=== PATIENT | female | born 1970 | race Caucasian/White ===

== ENCOUNTER 2017-10-11 15:02 | Emergency (ER) | payer MEDICARE, MEDICAID ==
[2017-10-11 15:08] VITALS: BP 136/87
--- NOTE | 2017-10-11 15:40 | ED Physician Documentation ---
PD HPI UPPER EXT INJURY - Stated complaint Stated Complaint: R HAND INJ - Chief complaint Chief Complaint: Ext Problem - History obtained from History obtained from: Patient - History of Present Illness Location: Right, Hand Type of injury: Blunt / blow Where injury occurred: A house / apartment Timing - onset: How many days ago (2) Worsened by: Moving, Palpating Associated symptoms: Swelling, Discolored Similar symptoms before: Has not had sx before - Additonal information Additional information: The patient is a 47-year-old female who presents with pain in her right hand. She punched a wall 2 days ago. She is right-hand dominant. Tetanus status is up-to-date. In addition she complains of pain in her left posterior chest, starting after she threw a heavy object with her left arm 2 days ago. She denies cough or shortness of breath. The pain is worse with movement of her left upper extremity. Review of Systems Constitutional: denies: Fever Nose: denies: Congestion Throat: denies: Sore throat Cardiac: reports: Chest pain / pressure. denies: Palpitations Respiratory: denies: Dyspnea, Cough GI: denies: Abdominal Pain, Nausea, Vomiting : denies: Dysuria Skin: denies: Rash Musculoskeletal: reports: Extremity pain (Right hand). 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, Hysterectomy HEENT: Detached retina repair, Tonsil/Adenoidectomy - Present Medications Home Medications: Ambulatory Orders Medication Instructions Recorded Confirmed HYDROcod/ACETAM 5/325 [Vicodin 1 ea PO Q6H PRN #15 tablet 10/11/17 5/325] - Allergies Allergies/Adverse Reactions: Allergies Allergy/AdvReac Type Severity Reaction Status Date / Time No Known Drug Allergies Allergy Verified 10/11/17 15:07 - Social History Does the pt smoke?: Yes Smoking Status: Current every day smoker Does the pt drink ETOH?: Yes Does the pt have substance abuse?: Yes Substance Use and Type: Marijuana PD ED PE NORMAL - Vitals Vital signs reviewed: Yes (Borderline hypertension.) - General General: Alert and oriented X 3, Well developed/nourished - HEENT HEENT: Atraumatic, Pharynx benign - Neck Neck: No bony TTP, No JVD - Cardiac Cardiac: RRR, No murmur - Respiratory Respiratory: No respiratory distress, Clear bilaterally, Other (Mild tenderness to palpation over the left latissimus dorsi musculature.) - Abdomen Abdomen: Soft, Non tender - Back Back: No CVA TTP, No spinal TTP - Derm Derm: No rash - Extremities Extremities: No edema, No calf tenderness / cord, Other (There is swelling of the right hand over the lateral aspect, with an area of ecchymosis at the base of the third and fourth fingers extending to the palmar aspect of the hand. There is a small superficial abrasion at the base of the fourth finger over the MCP joint. She has full flexion and extension of the DIP, PIP, and MCP joints. Distal neurovascular is intact.) - Neuro Neuro: Alert and oriented X 3, No motor deficit, No sensory deficit Results - Vitals Vitals: Oxygen O2 Source Room air - Rads (name of study) Right hand Radiology: Prelim report reviewed, EMP read contemporaneously, See rad report ( Proximal shaft fracture of the fifth metacarpal with mild displacement and foreshortening.) Procedures - Splint (location) right hand Splint applied by: Physician Type of splint: Fiberglass, Ulnar gutter Other: Patient tolerated well, No complications, Neurovascular intact, Sling provided PD MEDICAL DECISION MAKING - ED course Complexity details: reviewed results, re-evaluated patient, considered differential, d/w patient, d/w family ED course: The patient's presentation is significant for a closed fracture at the proximal shaft of the right fifth metacarpal. Treatment in the emergency department included application of an ulnar gutter splint, applied by myself. Ibuprofen 800 mg was administered orally, and an arm sling was applied. I discussed with her and her the expected course of injury, orthopedic follow-up, as well as potentially worrisome signs or symptoms that should prompt reevaluation in the emergency department. She is discharged with prescription for Vicodin, 15 tablets. Departure - Departure Disposition: 01 Home, Self Care Clinical Impression: Closed fracture of 5th metacarpal Qualifiers: Encounter type: initial encounter Metacarpal location: shaft Fracture alignment : displaced Laterality: right Qualified Code(s): S62.326A - Displaced fracture of shaft of fifth metacarpal bone, right hand, initial encounter for closed fracture Condition: Stable Instructions: ED Fx Hand Closed Follow-Up: [facility] [Provider Group] Prescriptions: HYDROcod/ACETAM 5/325 [Vicodin 5/325] 1 ea PO Q6H PRN #15 tablet PRN Reason: Pain Comments: Keep your right arm elevated as much the time as possible. Apply ice pack intermittently for the next 3 days. Keep the splint dry. You can use Naprosyn as prescribed if needed for pain. Follow up with orthopedics within 1 week. Call to schedule appointment. Return to the emergency department if you develop markedly increasing pain, or otherwise worsening symptoms. Discharge Date/Time: 10/11/17 16:35
--- NOTE | 2017-10-11 15:59 | XRAY Report ---
EXAM: RIGHT HAND RADIOGRAPHY EXAM DATE: 10/11/2017 03:41 PM. CLINICAL HISTORY: Pain since injury 2 days ago. COMPARISON: None. TECHNIQUE: 3 views. FINDINGS: Bones: Displaced and impacted oblique proximal shaft fracture of the fifth metacarpal with shortening . No other traumatic or destructive bony abnormalities. Joints: Normal. No subluxations. Soft Tissues: Associated soft tissue swelling. IMPRESSION: Proximal shaft fracture of the fifth metacarpal with mild displacement and foreshortening . [facility] Referring Provider Line: [phone] SITE ID: [id number]
--- NOTE | 2017-10-11 15:59 | XRAY Preliminary Report ---
Exam: XR HAND 3 VIEW RT IMPRESSION: Proximal shaft fracture of the fifth metacarpal with mild displacement and foreshortening . [facility] SITE ID: [id number]
[2017-10-11] MEDS ORDERED: IBUPROFEN 800 MG TABLET PO STA (16:25)
== END 2017-10-11 16:35 | disposition home or self-care (01) ==
LOC: ED 15:02
DX: S62.326A Displaced fracture of shaft of fifth metacarpal bone, right hand, initial encounter for closed fracture (principal); W22.09XA Striking against other stationary object, initial encounter; Y93.89 Activity, other specified; Y92.039 Unspecified place in apartment as the place of occurrence of the external cause; F17.200 Nicotine dependence, unspecified, uncomplicated
CPT/HCPCS: 29125; 73130; 99283; A9270

== ENCOUNTER 2017-11-02 07:24 | Outpatient (CLI) | payer MEDICARE, MEDICAID ==
[2017-11-02 09:28] LABS: ALBUMIN 3.8 g/dL (3.2-5.5); ALBUMIN/GLOBULIN RATIO 1.2 (1.0-2.2); BILIRUBIN,TOTAL 0.6 mg/dL (0.2-1.0); CALCIUM 9.2 mg/dL (8.5-10.3); CREATININE 0.9 mg/dL (0.4-1.0); TOTAL PROTEIN 7.1 g/dL (6.7-8.2)
--- NOTE | 2017-11-03 17:06 | Mammography Report ---
DATE OF SERVICE: 11/02/2017 DIGITAL SCREENING MAMMOGRAM: 11/02/2017 CLINICAL INDICATION: A 47-year-old for baseline. TECHNIQUE: Routine CC and MLO projections were obtained of the breasts. The breasts demonstrate fatty replacement bilaterally. Coarse, typically benign calcifications are present. No suspicious masses, clustered microcalcifications, or regions of architectural distortion are identified. IMPRESSION: Benign findings. RECOMMENDATIONS: Routine annual screening unless otherwise clinically indicated. BIRADS category 2 benign findings. STANDARD QUALIFYING STATEMENTS 1. This examination was reviewed with the aid of Computed-Aided Detection (CAD). 2. A negative or benign imaging report should not delay biopsy if clinically suspicious findings are present. Consider surgical consultation if warranted. More than 5% of cancers are not identified by imaging. 3. Dense breasts may obscure an underlying neoplasm. TD: 11/03/2017 18:05
== END 2017-11-02 07:25 | disposition home or self-care (01) ==
LOC: DI 07:24
PROVIDERS: ATTEND Nurse Practitioner Gerontology
DX: Z12.31 Encounter for screening mammogram for malignant neoplasm of breast (principal); R74.8 Abnormal levels of other serum enzymes
CPT/HCPCS: 36415; 77067; 80053

== ENCOUNTER 2018-01-18 09:59 | Emergency (ER) | payer MEDICARE, MEDICAID ==
[2018-01-18 10:24] LABS: BASOPHILS % (AUTO) 0.7 %; BILIRUBIN,URINE NEGATIVE (NEGATIVE); EOSINOPHILS # (AUTO) 0.1 10^3/uL (0.0-0.7); EOSINOPHILS % (AUTO) 1.1 %; GLUCOSE, URINE (UA) NEGATIVE (NEGATIVE); HGB - HEMOGLOBIN 16.5 g/dL (12.0-16.0); KETONES,URINE (UA) NEGATIVE (NEGATIVE); LEUKOCYTE ESTERASE, URINE SMALL (NEGATIVE); LYMPHOCYTES # (AUTO) 2.4 10^3/uL (1.5-3.5); LYMPHOCYTES % (AUTO) 34.1 %; MEAN PLATELET VOLUME 7.5 fL (7.9-10.8); MONOCYTES # (AUTO) 0.4 10^3/uL (0.0-1.0); MONOCYTES % (AUTO) 6.3 %; NEUTROPHILS # (AUTO) 4.1 10^3/uL (1.5-6.6); NEUTROPHILS % (AUTO) 57.8 %; NITRITE,URINE NEGATIVE (NEGATIVE); OCCULT BLOOD,URINE MODERATE (NEGATIVE); PH,URINE 5.5 PH (5.0-7.5); PLT - PLATELET COUNT 188 10^3/uL (130-450); PROTEIN,URINE NEGATIVE (NEGATIVE); RED CELL DISTRIBUTION WIDTH 12.5 % (12.0-15.0); UROBILINOGEN,URINE 0.2 (NORMAL) E.U./dL (NORMAL); WHITE BLOOD COUNT 7.1 x10^3/uL (4.8-10.8)
[2018-01-18 10:27] LABS: CLARITY,URINE CLEAR (CLEAR)
[2018-01-18 10:32] LABS: BACTERIA,URINE Few /HPF (None Seen); SQUAMOUS EPITHELIAL CELL,UR RARE Squamous (<= Few); STARCH,URINE PRESENT
[2018-01-18] MEDS ORDERED: ACETAMINOPHEN 1,000 MG/100 ML 100 ML IV STA (10:34)
[2018-01-18] MEDS ORDERED: ONDANSETRON 4 MG/2 ML VIAL IVP STA (10:34)
[2018-01-18] MEDS ORDERED: SODIUM CHLORIDE 0.9% 1,000 ML IV ONE (10:34)
--- NOTE | 2018-01-18 10:38 | ED Physician Documentation ---
PD HPI ABD PAIN - Stated complaint Stated Complaint: SIDE PX - Chief complaint Chief Complaint: Abd Pain - History obtained from History obtained from: Patient - History of Present Illness Timing - onset: How many months ago (2) Timing - details: Waxing and waning Quality: Pain Location: Other (right-sided.) Associated symptoms: Nausea, Vomiting, Diarrhea Similar symptoms before: No diagnosis (Diarrhea since 2016, and abd.pain for past two months.) - Additional information Additional information: The patient is a 47-year-old female who presents with right-sided abdominal pain that she has had intermittently for the past 2 months but has become worse this morning. She reports nausea with vomiting 2 days ago, but not since then. She has been using promethazine for nausea. She also reports watery diarrhea which she has had for the past 5 or 6 months. She reports 6 episodes of watery diarrhea in the last 24 hours despite taking Imodium. She reports mild dysuria. She denies fever or shortness of breath,. There is nothing in particular that seems to make the pain better or worse. Surgical history: Status post cholecystectomy in 2008, status post periumbilical hernia repair with mesh in 2009. She underwent colonoscopy about 4 years ago, and reports it revealed 3 polyps. Review of Systems Constitutional: reports: Fatigue. denies: Fever Nose: denies: Congestion Throat: denies: Sore throat Cardiac: denies: Chest pain / pressure Respiratory: reports: Cough (chronic smoker's cough.). denies: Dyspnea GI: reports: Abdominal Pain, Nausea, Vomiting, Diarrhea : reports: Dysuria (mild) Skin: denies: Rash Musculoskeletal: denies: Back pain, Extremity pain Neurologic: denies: Focal weakness, Numbness, Headache PD PAST MEDICAL HISTORY - Past Medical History Past Medical History: Yes Endocrine/Autoimmune: None HEENT: Other Musculoskeletal: Fibromyalgia, Osteoporosis Other Past Medical History: spinal cord tumor. 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, Hysterectomy HEENT: Detached retina repair, Tonsil/Adenoidectomy - Present Medications Home Medications: Ambulatory Orders Medication Instructions Recorded Confirmed Loperamide HCl [Imodium A-D] 2 mg PO 01/18/18 Nitrofurantoin [Macrobid] 100 mg PO BID #10 capsule 01/18/18 - Allergies Allergies/Adverse Reactions: Allergies Allergy/AdvReac Type Severity Reaction Status Date / Time adhesive Allergy Rash Verified 01/18/18 10:08 - Social History Does the pt smoke?: Yes Smoking Status: Current every day smoker Does the pt drink ETOH?: Yes Does the pt have substance abuse?: Yes - Immunizations Immunizations are current?: Yes PD ED PE NORMAL - Vitals Vital signs reviewed: Yes (borderline systolic hypertension.) - General General: Alert and oriented X 3, Well developed/nourished, Other (ill-kempt.) - HEENT HEENT: Atraumatic, EOMI, Moist mucous membranes, Pharynx benign - Neck Neck: Supple, no meningeal sign, No adenopathy, No JVD - Cardiac Cardiac: RRR, No murmur - Respiratory Respiratory: No respiratory distress, Clear bilaterally - Abdomen Abdomen: Soft, No organomegaly, Other (Tenderness to palpation in the right mid upper abdomen, without rebound tenderness or guarding.) - Back Back: No CVA TTP - Derm Derm: No rash - Extremities Extremities: No edema, No calf tenderness / cord - Neuro Neuro: Alert and oriented X 3, No motor deficit, Normal speech Results - Vitals Vitals: Oxygen O2 Source Room air - Labs Labs: Microbiology 01/18/18 10:20 Urine Culture - Preliminary Urine,Clean Catch 10-50,000 COLONIES/ML Polymicrobial growth including potential pathogens. This is suggestive of skin or other contamination. Laboratory Tests 01/18/18 01/18/18 01/18/18 10:20 10:20 10:20 WBC 7.1 RBC 5.00 Hgb 16.5 H Hct 48.5 H MCV 97.0 MCH 33.0 H MCHC 34.0 RDW 12.5 Plt Count 188 MPV 7.5 L Neut # 4.1 Lymph # 2.4 [place] # 0.4 Eos # 0.1 Baso # 0.0 Absolute Nucleated RBC 0.01 Nucleated RBC % 0.1 Sodium 139 Potassium 3.5 Chloride 101 Carbon Dioxide 28 Anion Gap 10.0 BUN 15 Creatinine 0.9 Estimated GFR (MDRD) 68 L Glucose 110 H Calcium 9.5 Total Bilirubin 0.9 AST 24 ALT 19 Alkaline Phosphatase 86 Total Protein 7.6 Albumin 4.1 Globulin 3.5 Albumin/Globulin Ratio 1.2 Lipase 12 L Urine Color DARK YELLOW Urine Clarity CLEAR Urine pH 5.5 Ur Specific [place] >=1.030 H Urine Protein NEGATIVE Urine Glucose (UA) NEGATIVE Urine Ketones NEGATIVE Urine Occult Blood MODERATE H Urine Nitrite NEGATIVE Urine Bilirubin NEGATIVE Urine Urobilinogen 0.2 (NORMAL) Ur Leukocyte Esterase SMALL H Urine RBC 6-10 H Urine WBC 6-10 H Ur Squamous Epith Cells RARE Squamous Urine Bacteria Few Urine Starch PRESENT Ur Microscopic Review INDICATED Urine Culture Comments INDICATED - Rads (name of study) CT abd/pelvis w/IV contrast Radiology: Prelim report reviewed, EMP read contemporaneously, See rad report (1 ) Prior cholecystectomy with mild to moderate intrahepatic and extrahepatic bile duct dilatation, not unusual post cholecystectomy. No choledocholithiasis. 2) Question of small area of fatty herniation in the area of prior abdominal wall umbilical/periumbilical hernia repair. Abdominal wall ultrasound may be considered on an elective basis for further assessment. No bowel involvement. 3)Prior hysterectomy. 4) Remainder of the abdomen and pelvis unremarkable without demonstrated cause for the patient's symptoms.) PD MEDICAL DECISION MAKING - ED course Complexity details: reviewed old records, reviewed results, re-evaluated patient , considered differential, d/w patient ED course: The patient's abdominal pain seems most likely related to her previous periumbilical hernia repair with a small herniation noted on the CT scan at the edge of the mesh. There is no bowel involvement, and this does not represent an emergent surgical condition. Her laboratory analysis reveals cystitis, with pyuria and bacteriuria on urinalysis. CBC and chemistry panel are unremarkable. It is unclear to me the etiology of the patient's reportedly chronic diarrhea. She had no diarrhea while in the emergency department. There is no evidence to suggest an infectious etiology. Treatment in the emergency department included administration of normal saline 1 L IV, Zofran 4 mg IV, and acetaminophen 1 g IV Macrobid 1 tablet was administered orally. She is being discharged with prescription for Macrobid. I discussed with her the results of her workup, antibiotic treatment and outpatient follow-up, as well as potentially worrisome signs or symptoms that should prompt reevaluation in the emergency department. Departure - Departure Disposition: 01 Home, Self Care Clinical Impression: Abdominal pain Qualifiers: Abdominal location: generalized Qualified Code(s): R10.84 - Generalized abdominal pain Urinary tract infection Qualifiers: Urinary tract infection type: acute cystitis Hematuria presence: without hematuria Qualified Code(s): N30.00 - Acute cystitis without hematuria Condition: Stable Instructions: ED UTI Cystitis Female Follow-Up: Nabeel Le PA-C [Credentialed Staff Provider] - Prescriptions: Nitrofurantoin [Macrobid] 100 mg PO BID #10 capsule Comments: Drink plenty of fluids, including cranberry juice. Take Macrobid twice daily as prescribed. You can use Phenergan as prescribed if needed for nausea. Follow up with your primary physician within 1-2 weeks. Call to schedule an appointment. Return to the emergency department if you develop increasing abdominal pain, persistent vomiting, dehydration, or otherwise worsening symptoms. Discharge Date/Time: 01/18/18 14:07
[2018-01-18 10:40] LABS: ALBUMIN 4.1 g/dL (3.2-5.5); ALBUMIN/GLOBULIN RATIO 1.2 (1.0-2.2); BILIRUBIN,TOTAL 0.9 mg/dL (0.2-1.0); CALCIUM 9.5 mg/dL (8.5-10.3); CREATININE 0.9 mg/dL (0.4-1.0); TOTAL PROTEIN 7.6 g/dL (6.7-8.2)
[2018-01-18] MEDS ORDERED: IOPAMIDOL-300 100 ML VIAL ONE (10:58)
[2018-01-18] MEDS ORDERED: IOPAMIDOL-300 100 ML VIAL IVP ONE (11:15)
--- NOTE | 2018-01-18 11:38 | CT Preliminary Report ---
Exam: CT ABDOMEN/PELVIS W/ IMPRESSION: Prior cholecystectomy with mild to moderate intrahepatic and extra hepatic bile duct dila tation, not unusual post cholecystectomy. No choledocholithiasis. Question of small area of fatty herniation in the area of prior abdominal wall umbilical/periumbilica l hernia repair. Abdominal wall ultrasound should be considered on an elective basis for further asse ssment. No bowel involvement. Prior hysterectomy. Remainder of the abdomen and pelvis unremarkable without demonstrated cause for the patient's symptom s.. [facility] SITE ID: [id number]
--- NOTE | 2018-01-18 11:55 | CT Report ---
EXAM: CT ABDOMEN AND PELVIS WITH CONTRAST EXAM DATE: 01/18/2018 11:17 AM. CLINICAL HISTORY: Right mid-abdominal pain, with vomiting and diarrhea for several months in a 47-yea r-old female. History of hysterectomy, cholecystectomy and prior hernia repair. COMPARISONS: None. TECHNIQUE: Emergent axial helical CT imaging was performed through the abdomen and pelvis. IV contras t: Isovue 300, 100 mL. Enteric contrast: None. Reconstructions: Coronal and sagittal. In accordance with CT protocol optimization, one or more of the following dose reduction techniques w ere utilized for this exam: automated exposure control, adjustment of mA and/or KV based on patient s ize, or use of iterative reconstructive technique. FINDINGS: Lung Bases: Unremarkable. Liver: Normal size and contour. No mass or cyst. Gallbladder/Bile Ducts: Gallbladder surgically absent. Mild intrahepatic and extra hepatic bile duct dilatation. No choledocholithiasis noted. Spleen: Upper normal size at 12.1 cm in length. Otherwise unremarkable. No mass or cyst. Pancreas: Normal. Adrenal Glands: Normal. Kidneys: Normal. No masses or hydronephrosis. Peritoneal Cavity/Bowel: Normal. No free fluid, free air or adenopathy. No masses or acute inflammato ry process. The appendix and terminal ileum are well visualized and normal. Pelvic Organs: Urinary bladder decompressed and grossly unremarkable. Uterus surgically absent. No ad nexal mass, cyst or free fluid. No evident lymphadenopathy. Vasculature: No aneurysms or other significant abnormality. Bones: Unremarkable for age. No acute process or metastatic disease. Other: Postsurgical changes consistent with repair of abdominal wall hernia small focal area of fatty protrusion in the area of the umbilicus measuring 4.1 cm in transverse diameter by 1.9 cm in AP diam eter. No bowel involvement. IMPRESSION: Prior cholecystectomy with mild to moderate intrahepatic and extra hepatic bile duct dila tation, not unusual post cholecystectomy. No choledocholithiasis. Question of small area of fatty herniation in the area of prior abdominal wall umbilical/periumbilica l hernia repair. Abdominal wall ultrasound should be considered on an elective basis for further asse ssment. No bowel involvement. Prior hysterectomy. Remainder of the abdomen and pelvis unremarkable without demonstrated cause for the patient's symptom s. [facility] Referring Provider Line: [phone] SITE ID: [id number]
[2018-01-18] MEDS ORDERED: NITROFURANTOIN MACRO 100 MG CAPSULE PO STA (14:01)
[2018-01-18 14:08] VITALS: BP 155/86
== END 2018-01-18 14:07 | disposition home or self-care (01) ==
LOC: ED 09:59
DX: R10.84 Generalized abdominal pain (principal); N30.00 Acute cystitis without hematuria; F17.200 Nicotine dependence, unspecified, uncomplicated; Z98.890 Other specified postprocedural states
CPT/HCPCS: 36415; 74177; 80053; 81001; 83690; 85025; 87086; 96365; 96366; 96375; 99283; 99284; A9270; J0131; Q9967; 81003

== ENCOUNTER 2018-03-15 10:58 | Day surgery (SDC) | payer MEDICARE, MEDICAID ==
[2018-03-15] MEDS ORDERED: LACTATED RINGERS 1,000 ML IV ONE ×2 (11:00→12:12)
[2018-03-15] MEDS ORDERED: LIDO GARGLE 30 ML BOTTLE PO ONE (12:15)
[2018-03-15] MEDS ORDERED: PROPOFOL 200 MG/20 ML VIAL IVP ONE (13:10)
[2018-03-15] MEDS ORDERED: LIDOCAINE-MPF 2% 5 ML VIAL IM ONE (13:10)
[2018-03-15 14:00] VITALS: BP 127/81
== END 2018-03-15 10:59 | disposition home or self-care (01) ==
LOC: SDS 10:58
PROVIDERS: ATTEND Internal Medicine Gastroenterology
PROC: 0DBN8ZX Excision of Sigmoid Colon, Via Natural or Artificial Opening Endoscopic, Diagnostic (ICD-10-PCS; principal; 2018-03-15 12:15)
PROC: 0DB68ZX Excision of Stomach, Via Natural or Artificial Opening Endoscopic, Diagnostic (ICD-10-PCS; 2018-03-15 12:15)
DX: K52.9 Noninfective gastroenteritis and colitis, unspecified (principal); K63.5 Polyp of colon; K31.9 Disease of stomach and duodenum, unspecified; K21.9 Gastro-esophageal reflux disease without esophagitis; R10.11 Right upper quadrant pain; F41.9 Anxiety disorder, unspecified; G47.30 Sleep apnea, unspecified; I10 Essential (primary) hypertension; E78.5 Hyperlipidemia, unspecified; F32.9 Major depressive disorder, single episode, unspecified; E66.9 Obesity, unspecified; G43.909 Migraine, unspecified, not intractable, without status migrainosus; J44.9 Chronic obstructive pulmonary disease, unspecified
CPT/HCPCS: 43239; 45380; 87081; A9270; J7120; 88305

== ENCOUNTER 2018-04-12 09:21 | Emergency (ER) | payer MEDICARE, MEDICAID ==
[2018-04-12 10:12] VITALS: BP 126/76
--- NOTE | 2018-04-12 10:58 | XRAY Report ---
Procedure Date: 04/12/2018 Accession Number: [id number] / [id number] Procedure: XR - Foot 3 View LT CPT Code: FULL RESULT: EXAM: LEFT FOOT RADIOGRAPHY EXAM DATE: 04/12/2018 10:30 AM. CLINICAL HISTORY: Foreign objects-?glass. COMPARISON: None. TECHNIQUE: 3 views. FINDINGS: Bones: No fractures or bone lesions. Question prior healed first metatarsal osteotomy. First metatarsal is shorter than 2nd through 5th metatarsals. Joints: Prior arthrodesis involving the bases of first and second metatarsals, in addition to the medial and middle cuneiforms bones. Arthrodesis utilizes 4 intact screws and demonstrates solid osseous fusion. A portion of the medial base of third metatarsal may also be fused. Soft Tissues: A 4 mm thin, elongated and very superficial proximal midfoot soft tissue density noted on lateral view. IMPRESSION: 1. Small 4 mm, superficial plantar proximal midfoot radiopaque foreign body. 2. Prior medial midfoot-metatarsal arthrodesis. [facility]
--- NOTE | 2018-04-12 12:00 | ED Physician Documentation ---
PD HPI LOWER EXT INJURY - Stated complaint Stated Complaint: LEFT FOOT LAC - Chief complaint Chief Complaint: Wound - History obtained from History obtained from: Patient - History of Present Illness PD HPI LOW EXT INJURY LOCATION: Left, Foot (plantar aspect, stepped on broken piece of ceramic and got laceration/FB to left foot. She thought it would work out and then got more sore. Tried to remove it at home but hurt to try to open the lac, was sealed over the FB.) Type of injury: Foreign body Where injury occurred: Home Timing - onset: How many weeks ago (1) Timing - duration: Weeks (1) Timing - details: Abrupt onset, Still present Worsened by: Palpating, Other (walking) Associated symptoms: No: Weakness, Numbness Similar symptoms before: Has not had sx before Recently seen: Not recently seen Review of Systems Constitutional: denies: Fever, Chills Skin: denies: Rash, Lesions PD PAST MEDICAL HISTORY - Past Medical History Past Medical History: Yes Cardiovascular: Hypertension, High cholesterol Respiratory: Asthma, COPD, Emphysema, Sleep apnea Endocrine/Autoimmune: None GI: GERD, GI bleed, Hiatal hernia, Colon polyps, Chronic diarrhea : None HEENT: Chronic vision loss Psych: Depression, Anxiety, Bipolar disorder, Panic attacks, Obsessive compulsive disorder Musculoskeletal: Fibromyalgia, Osteoporosis Derm: Other - Past Surgical History Past Surgical History: Yes General: Cholecystectomy, Other Ortho: Carpal Tunnel surgery, Spine surgery, 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, Hysterectomy HEENT: Cataracts, Detached retina repair, Tonsil/Adenoidectomy - Present Medications Home Medications: Ambulatory Orders Medication Instructions Recorded Confirmed No Known Home Medications [No 04/12/18 04/12/18 Known Home Medications] - Allergies Allergies/Adverse Reactions: Allergies Allergy/AdvReac Type Severity Reaction Status Date / Time adhesive Allergy Rash Verified 04/12/18 10:06 bee venom protein (honey bee) Allergy Anaphylaxis Verified 04/12/18 10:06 ibuprofen AdvReac Nausea Verified 04/12/18 10:06 milk AdvReac Nausea Verified 04/12/18 10:06 - Social History Does the pt smoke?: Yes Smoking Status: Current every day smoker Does the pt drink ETOH?: Yes ETOH Use: Beer Does the pt have substance abuse?: Yes Substance Use and Type: Marijuana - Immunizations Immunizations are current?: Yes - POLST Patient has POLST: No PD ED PE NORMAL - Vitals Vital signs reviewed: Yes - General General: Alert and oriented X 3, Well developed/nourished - Derm Derm: Normal color, Warm and dry - Extremities Extremities: Other (left plantar foot near distal medial arch with firm and tender area that is not red nor draining, but is locally tender. ) - Neuro Neuro: No motor deficit, No sensory deficit Results - Vitals Vitals: Oxygen O2 Source Room air - Rads (name of study) foot Radiology: Prelim report reviewed (small FB seen just below the plantar aspect foot.) Procedures - FB removal FB location: Subcutaneous FB removal preparation: Local anesthesia-specify Removal method: Foreceps, Incision (incison with #11 scalpel and then able to feel and remove FB with forceps. 2 sutures placed to close the hole.) FB removal aftercare: No complications, Patient tolerated well, Removed successfully PD MEDICAL DECISION MAKING - ED course Complexity details: considered differential, d/w patient - Sepsis Event Vital Signs: Oxygen O2 Source Room air Departure - Departure Disposition: 01 Home, Self Care Clinical Impression: Acute foreign body of plantar aspect of foot Qualifiers: Encounter type: initial encounter Laterality: left Qualified Code(s): S90.852A - Superficial foreign body, left foot, initial encounter Condition: Stable Record reviewed to determine appropriate education?: Yes Comments: It is okay to wash and shower. Clean off the wound twice a day with soap and water, or peroxide and water. Apply some antibiotic ointment to it to keep it moist. Also to watch for signs of infection such as purulence, redness or increasing pain. Return to your primary care or the ER at the specified time for suture removal. Tylenol ibuprofen if needed for pains. Suture removal in about a week. Discharge Date/Time: 04/12/18 12:59
[2018-04-12] MEDS ORDERED: LIDOCAINE 2% 10 ML MDV SUBQ STA (12:11)
== END 2018-04-12 12:59 | disposition home or self-care (01) ==
LOC: ED 09:21
DX: S90.852A Superficial foreign body, left foot, initial encounter (principal); I10 Essential (primary) hypertension; F17.200 Nicotine dependence, unspecified, uncomplicated; W26.8XXA Contact with other sharp object(s), not elsewhere classified, initial encounter; Y92.009 Unspecified place in unspecified non-institutional (private) residence as the place of occurrence of the external cause
CPT/HCPCS: 10120; 99282

== ENCOUNTER 2020-12-07 12:32 | Emergency (ER) | payer MEDICAID, MEDICARE, OTHER ==
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
--- NOTE | 2020-12-07 13:10 | XRAY Report ---
PROCEDURE: Hand 3 View LT INDICATIONS: Trauma TECHNIQUE: 3 views of the hand(s) acquired. COMPARISON: Contralateral right hand radiographs for comparison 10/11/2017. FINDINGS: Bones: No fractures or dislocations. No suspicious bony lesions. Soft tissues: No suspicious soft tissue calcifications. IMPRESSION: No acute osseous abnormality. Reviewed by: Mike Lauren MD on 12/07/2020 1:09 PM [facility] Approved by: Mike Lauren MD on 12/07/2020 1:09 PM [facility] Station ID: [id number]
[2020-12-07 13:28] VITALS: BP 120/70
== END 2020-12-07 14:28 | disposition home or self-care (01) ==
LOC: ED 12:32
DX: M79.642 Pain in left hand (principal); M25.532 Pain in left wrist; V18.0XXA Pedal cycle driver injured in noncollision transport accident in nontraffic accident, initial encounter; Y93.55 Activity, bike riding; I10 Essential (primary) hypertension; F17.200 Nicotine dependence, unspecified, uncomplicated
CPT/HCPCS: 99281; 99283

== ENCOUNTER 2020-12-17 07:00 | Outpatient (CLI) | payer OTHER ==
--- NOTE | 2020-12-17 11:25 | XRAY Report ---
PROCEDURE: Wrist 4 View LT INDICATIONS: LEFT WRIST PAIN TECHNIQUE: 4 views of the wrist were acquired. COMPARISON: None FINDINGS: Bones: No fractures or dislocations. No suspicious bony lesions. Scaphoid view: Normal scapholunate interval. The scaphoid is intact. Soft tissues: No suspicious soft tissue calcifications. IMPRESSION: Normal exam. Reviewed by: Tomy Maciel MD on 12/17/2020 11:23 AM [facility] Approved by: Tomy Maciel MD on 12/17/2020 11:23 AM [facility] Station ID: [id number]
== END 2020-12-17 23:59 | disposition home or self-care (01) ==
LOC: DI.N 07:00
PROVIDERS: ATTEND Orthopaedic Surgery
DX: M25.532 Pain in left wrist (principal)

== ENCOUNTER 2020-12-28 08:00 | Outpatient (CLI) | payer OTHER ==
--- NOTE | 2020-12-28 10:59 | XRAY Report ---
PROCEDURE: Wrist 4 View LT INDICATIONS: L WRIST JOINT PX TECHNIQUE: 4 views of the wrist were acquired. COMPARISON: X-ray wrist/02/03 FINDINGS: Bones: No fractures or dislocations. No suspicious bony lesions. Scaphoid view: No visualized fracture. Soft tissues: No suspicious soft tissue calcifications. IMPRESSION: No visualized acute fracture or dislocation. However, occult injury cannot be excluded. CT/MR is rebeca mmended if clinical concern persists. Reviewed by: Nila Mendoza MD on 12/28/2020 10:58 AM PDT Approved by: Nila Mendoza MD on 12/28/2020 10:58 AM PDT Station ID: [id number]
== END 2020-12-28 23:59 | disposition home or self-care (01) ==
LOC: DI.N 08:00
PROVIDERS: ATTEND Orthopaedic Surgery
DX: M25.532 Pain in left wrist (principal)